=== PATIENT | male | born 1930 | race Caucasian/White ===

== ENCOUNTER 2019-02-07 11:21 | Emergency (ER) | payer OTHER, MEDICARE ==
--- NOTE | 2019-02-07 13:36 | EDPHYS ---
Physician Documentation [facility] Name: Mark Raya Jr Age: 88 yrs Sex: Male : 1930 Arrival Date: 02/07/2019 Time: 11:24 Bed 12 Private MD: ED Physician Abraham Barnett HPI: 02/07 12:41 This 88 yrs old Male presents to ER via Ambulatory with complaints of bump on gaurang wrist. 12:41 The patient or guardian reports pain, swelling. gaurang Historical: - Allergies: 11:47 Codeine; hj 11:47 Lisinopril; hj 11:47 amlodipine; hj 11:47 Lipitor; hj 11:47 pravastatin; hj - Home Meds: 11:47 metoprolol tartrate 25 mg Oral tab 1 tab 2 times per day [Active]; Diovan 320 mg Oral hj tab 1 tab once daily [Active]; aspirin 81 mg Oral TbEC 1 tab once daily [Active]; omeprazole 40 mg Oral cpDR 1 cap once daily [Active]; Vitamin D3 2,000 unit oral tab daily [Active]; hydrochlorothiazide 12.5 mg Oral tab 1 tab once daily [Active]; - PMHx: 11:47 Hypertension; Hyperlipidemia; hj - PSHx: 11:47 Hernia repair; L4 surgery; hj - Immunization history:: Adult Immunizations up to date. - Social history:: Smoking status: Patient/guardian denies using tobacco, Patient/guardian denies using alcohol. - Ebola Screening: : Patient negative for fever greater than or equal to 101.5 degrees Fahrenheit, and additional compatible Ebola Virus Disease symptoms Patient denies exposure to infectious person Patient denies travel to an Ebola-affected area in the 21 days before illness onset. ROS: 12:42 Constitutional: Negative for fever, chills, and weight loss, Eyes: Negative for injury, gaurang pain, redness, and discharge, ENT: Negative for injury, pain, and discharge, Neck: Negative for injury, pain, and swelling, Cardiovascular: Negative for chest pain, palpitations, and edema, Respiratory: Negative for shortness of breath, cough, wheezing, and pleuritic chest pain, Abdomen/GI: Negative for abdominal pain, nausea, vomiting, diarrhea, and constipation, Back: Negative for injury and pain, : Negative for injury, bleeding, discharge, and swelling, Skin: Negative for injury, rash, and discoloration, Neuro: Negative for headache, weakness, numbness, tingling, and seizure, Psych: Negative for depression, anxiety, suicide ideation, homicidal ideation, and hallucinations, Allergy/Immunology: Negative for hives, rash, and allergies, Endocrine: Negative for neck swelling, polydipsia, polyuria, polyphagia, and marked weight changes, Hematologic/Lymphatic: Negative for swollen nodes, abnormal bleeding, and unusual bruising. 12:42 MS/extremity: Positive for pain, swelling, of the left wrist. Exam: 12:42 Constitutional: This is a well developed, well nourished patient who is awake, alert, gaurang and in no acute distress. Head/Face: Normocephalic, atraumatic. Eyes: Pupils equal round and reactive to light, extra-ocular motions intact. Lids and lashes normal. Conjunctiva and sclera are non-icteric and not injected. Cornea within normal limits. Periorbital areas with no swelling, redness, or edema. ENT: Nares patent. No nasal discharge, no septal abnormalities noted. Tympanic membranes are normal and external auditory canals are clear. Oropharynx with no redness, swelling, or masses, exudates, or evidence of obstruction, uvula midline. Mucous membranes moist. Neck: Trachea midline, no thyromegaly or masses palpated, and no cervical lymphadenopathy. Supple, full range of motion without nuchal rigidity, or vertebral point tenderness. No Meningismus. Chest/axilla: Normal chest wall appearance and motion. Nontender with no deformity. No lesions are appreciated. Cardiovascular: Regular rate and rhythm with a normal S1 and S2. No gallops, murmurs, or rubs. Normal PMI, no JVD. No pulse deficits. Respiratory: Lungs have equal breath sounds bilaterally, clear to auscultation and percussion. No rales, rhonchi or wheezes noted. No increased work of breathing, no retractions or nasal flaring. Abdomen/GI: Soft, non-tender, with normal bowel sounds. No distension or tympany. No guarding or rebound. No evidence of tenderness throughout. Back: No spinal tenderness. No costovertebral tenderness. Full range of motion. Skin: Warm, dry with normal turgor. Normal color with no rashes, no lesions, and no evidence of cellulitis. Neuro: Awake and alert, GCS 15, oriented to person, place, time, and situation. Cranial nerves II-XII grossly intact. Motor strength 5/5 in all extremities. Sensory grossly intact. Cerebellar exam normal. Normal gait. Psych: Awake, alert, with orientation to person, place and time. Behavior, mood, and affect are within normal limits. 12:42 Musculoskeletal/extremity: ROM: no acute changes, intact in all extremities, full active range of motion, full passive range of motion, Circulation is intact in all extremities. Sensation intact. Compartment Syndrome exam of affected extremity: is normal. Joints: All joints appear normal with full range of motion. All joints are normal except DVT Exam: no pain, no tenderness, negative Homans' sign noted on exam, no appreciated bluish discoloration, no erythema, no increased warmth, swelling. Vital Signs: 11:48 BP 162 / 90; Pulse 60; Resp 18; Temp 98.0(O); Pulse Ox 100% on R/A; Weight 70.31 kg; hj Height 5 ft. 10 in. (177.80 cm); Pain 1/10; 11:48 Body Mass Index 22.24 (70.31 kg, 177.80 cm) MDM: 12:20 Patient medically screened. [facility] 12:43 Data reviewed: vital signs, nurses notes, radiologic studies, plain films. [facility] 02/07 12:41 Order name: Wrist Left (3 View) XRAY [facility] 02/07 12:41 Order name: Ice pack; Complete Time: 12:58 [facility] 02/07 12:46 Order name: Akil Wrap; Complete Time: 13:34 [facility] Administered Medications: No medications were administered Disposition: 02/07/19 13:36 Discharged to Home. Impression: Contusion of left wrist. - Condition is Stable. - Discharge Instructions: Hematoma, Hematoma, [id number]. - Medication Reconciliation Form, Thank You Letter, Antibiotic Education, Prescription Opioid Use form. - Follow up: Private Physician; When: 2 - 3 days; Reason: Recheck today's complaints, Continuance of care, Re-evaluation by your physician. - Problem is new. - Symptoms have improved. Signatures: Dispatcher [employer] EDMS Abraham Barnett MD MD cha Smirch, Shelby, RN RN Nash, Cresencio, RN RN hj Corrections: (The following items were deleted from the chart) 13:45 13:36 02/07/2019 13:36 Discharged to Home. Impression: Contusion of left wrist. ss Condition is Stable. Discharge Instructions: Hematoma, Hematoma, [id number]. Forms are Medication Reconciliation Form, Thank You Letter, Antibiotic Education, Prescription Opioid Use. Follow up: Private Physician; When: 2 - 3 days; Reason: Recheck today's complaints, Continuance of care, Re-evaluation by your physician. Problem is new. Symptoms have improved. gaurang
--- NOTE | 2019-02-07 13:36 | ER ---
Nurse's Notes [facility] Name: Mark Raya Jr Age: 88 yrs Sex: Male : 1930 Arrival Date: 02/07/2019 Time: 11:24 Bed 12 Private MD: Diagnosis: Contusion of left wrist Presentation: 02/07 11:42 Presenting complaint: Patient states: i was sitting in mu-[employer] and my watch is jhon hj loose, i felt and knot on my L wrist; it looks like a ruptured vessel; denies trauma to the area; reports 1/10 pain;. Transition of care: patient was not received from another setting of care. Onset of symptoms was February 07, 2019. Risk Assessment: Do you want to hurt yourself or someone else? Patient reports no desire to harm self or others. Initial Sepsis Screen: Does the patient meet any 2 criteria? No. Patient's initial sepsis screen is negative. Does the patient have a suspected source of infection? No. Patient's initial sepsis screen is negative. Care prior to arrival: None. 11:42 Method Of Arrival: Ambulatory 11:42 Acuity: ANITRA 4 hj Triage Assessment: 11:47 General: Appears in no apparent distress. uncomfortable, Behavior is calm, cooperative, hj appropriate for age. Pain: Complains of pain in left hand. Historical: - Allergies: 11:47 Codeine; 11:47 Lisinopril; hj 11:47 amlodipine; 11:47 Lipitor; 11:47 pravastatin; hj - Home Meds: 11:47 metoprolol tartrate 25 mg Oral tab 1 tab 2 times per day [Active]; Diovan 320 mg Oral hj tab 1 tab once daily [Active]; aspirin 81 mg Oral TbEC 1 tab once daily [Active]; omeprazole 40 mg Oral cpDR 1 cap once daily [Active]; Vitamin D3 2,000 unit oral tab daily [Active]; hydrochlorothiazide 12.5 mg Oral tab 1 tab once daily [Active]; - PMHx: 11:47 Hypertension; Hyperlipidemia; hj - PSHx: 11:47 Hernia repair; L4 surgery; hj - Immunization history:: Adult Immunizations up to date. - Social history:: Smoking status: Patient/guardian denies using tobacco, Patient/guardian denies using alcohol. - Ebola Screening: : Patient negative for fever greater than or equal to 101.5 degrees Fahrenheit, and additional compatible Ebola Virus Disease symptoms Patient denies exposure to infectious person Patient denies travel to an Ebola-affected area in the 21 days before illness onset. Screenin:47 Abuse screen: Denies threats or abuse. Denies injuries from another. Nutritional hj screening: No deficits noted. Tuberculosis screening: No symptoms or risk factors identified. Fall Risk None identified. Assessment: 12:15 General: Appears in no apparent distress. comfortable, Behavior is calm, cooperative, ss Denies fever, feeling ill, fatigue, chills. Pain: Complains of pain in left wrist Pain currently is 1 out of 10 on a pain scale. Quality of pain is described as tender. Neuro: Level of Consciousness is awake, alert, obeys commands. Respiratory: Airway is patent Respiratory effort is even, unlabored, Respiratory pattern is regular, symmetrical. EENT: Nares are clear Oral mucosa is moist. Derm: Skin is pink, warm \T\ dry. normal. Derm: Bruising that is dark purple, on left wrist. Musculoskeletal: Swelling present in left wrist. Vital Signs: 11:48 BP 162 / 90; Pulse 60; Resp 18; Temp 98.0(O); Pulse Ox 100% on R/A; Weight 70.31 kg; hj Height 5 ft. 10 in. (177.80 cm); Pain 1/10; 11:48 Body Mass Index 22.24 (70.31 kg, 177.80 cm) ED Course: 11:24 Patient arrived in ED. mr 11:43 Triage completed. hj 11:47 Arm band placed on right wrist. hj 11:47 Patient has correct armband on for positive identification. Placed in gown. Bed in low hj position. Call light in reach. Side rails up X 1. 12:15 Ice pack to injury. ss 12:15 Akil wrap to left wrist. ss 12:20 Abraham Barnett MD is Attending Physician. gaurang 12:45 Yanna Chen, WILFREDO is Primary Nurse. 13:45 No provider procedures requiring assistance completed. Patient did not have IV access ss during this emergency room visit. 14:20 Wrist Left (3 View) XRAY In Process Unspecified. EDMS Administered Medications: No medications were administered Outcome: 13:36 Discharge ordered by . gaurang 13:45 Discharged to home ambulatory. 13:45 Condition: good 13:45 Discharge instructions given to patient, family, Instructed on discharge instructions, follow up and referral plans. Demonstrated understanding of instructions, follow-up care. 13:45 Patient left the ED. Signatures: Dispatcher [employer] Abraham Alonzo MD MD cha Rivera, Yee Yanna Chen RN RN Cresencio Cao RN RN hj Corrections: (The following items were deleted from the chart) 11:50 11:48 Pulse 60bpm; Resp 18bpm; Pulse Ox 100% RA; Temp 98.0F Oral; 70.31 kg; Height 5 hj ft. 10 in.; BMI: 22.2; Pain 110; hj
--- NOTE | 2019-02-07 14:26 | RAD REPORT ---
EXAM DESCRIPTION: RAD - Wrist Left 3 View - 02/07/2019 2:20 pm CLINICAL HISTORY: PAIN Pain COMPARISON: No comparisons FINDINGS: Prominent focal soft tissue swelling is seen at the level of the dorsum of the wrist. 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 No acute fracture, dislocation underlying aggres sive marrow lesion.
== END 2019-02-07 13:45 | disposition home or self-care (01) ==
LOC: ER 11:21
DX: S60.212A Contusion of left wrist, initial encounter (principal); I10 Essential (primary) hypertension; E78.5 Hyperlipidemia, unspecified; X58.XXXA Exposure to other specified factors, initial encounter; Y93.9 Activity, unspecified; Z88.6 Allergy status to analgesic agent; Z88.8 Allergy status to other drugs, medicaments and biological substances
CPT/HCPCS: 99283